=== PATIENT | female | born 1950 | race Caucasian/White ===

== ENCOUNTER 2016-10-17 04:30 | Emergency (ER) | payer MEDICARE ==
[2016-10-17] MEDS ORDERED: ACETAMINOPHEN 325 MG TAB PO ONE (04:54)
[2016-10-17] MEDS ORDERED: diazePAM 2 MG TAB PO ONE (04:54)
[2016-10-17] MEDS ORDERED: ACETAMINOPHEN 325 MG TAB ONE (04:56)
[2016-10-17 06:09] VITALS: O2SAT 94
--- NOTE | 2016-10-17 06:10 | ED.PDOC ---
History of Present Illness - General Chief Complaint: Headache Stated Complaint: headache, high BP Time Seen by Provider: 10/17/16 04:30 Source: patient Exam Limitations: no limitations - History of Present Illness Initial Comments: the patient is a 66-year-old female presenting to the emergency room secondary to waking up with a headache. Headache starts at the posterior base of her skull and wraps around the crown of her skull. This is one of the more severe headaches that she has had. Her systolic blood pressures went from the 160s up to around 220. She took a clonidine and then showed appear to the ER within 20 minutes. No neurological deficits. No syncope or near-syncope. No vision changes. No nausea or vomiting. Timing/Duration: 1 hour Severity: moderate Improving Factors: medication Worsening Factors: nothing Associated Symptoms: headaches Allergies/Adverse Reactions: Allergies Sulfa Antibiotics Adverse Reaction (Verified 10/17/16 04:36) Home Medications: Ambulatory Orders Nebivolol HCl [Bystolic] 10 mg PO QPM #30 tab 02/23/16 Abatacept [Orencia] 250 mg IV MONTHLY 10/17/16 Leflunomide [Arava] 10 mg PO DAILY 10/17/16 Levothyroxine Sodium [Synthroid] 75 mcg PO DAILY 10/17/16 Pravastatin Sodium 40 mg PO DAILY 10/17/16 Review of Systems - Review of Systems Constitutional: States: no symptoms reported EENTM: States: no symptoms reported Respiratory: States: no symptoms reported Cardiology: States: no symptoms reported Gastrointestinal/Abdominal: States: no symptoms reported Genitourinary: States: no symptoms reported Musculoskeletal: States: neck pain Skin: States: no symptoms reported Neurological: States: headache Endocrine: States: no symptoms reported Hematologic/Lymphatic: States: no symptoms reported All other Systems: No Change from Baseline Past Medical History (General) - Patient Medical History Hx Seizures: No Hx Stroke: No Hx Dementia: No Hx Asthma: No Hx of COPD: No Hx Cardiac Disorders: No Hx Congestive Heart Failure: No Hx Pacemaker: No Hx Hypertension: Yes Hx Thyroid Disease: Yes Hx Diabetes: No Hx Gastroesophageal Reflux: No Hx Renal Disease: No Hx Cancer: No Hx of HIV: No Hx Hepatitis C: No Hx MRSA: No Surgical History: Hysterectomy - Vaccination History Hx Tetanus, Diphtheria Vaccination: Yes Hx Influenza Vaccination: No Hx Pneumococcal Vaccination: No Immunizations Up to Date: Yes - Social History Hx Tobacco Use: No Hx Chewing Tobacco Use: No Hx Alcohol Use: No Hx Substance Use: No Hx Substance Use Treatment: No Hx Depression: No Feels Threatened In Home Enviroment: No Feels Threatened In a Relationship: No Hx Physical Abuse: No Hx Emotional Abuse: No Hx Suspected Abuse: No Family Medical History - Family History Mother Family History: Unknown Living Status: Unknown Physical Exam - Physical Exam General Appearance: Alert, Anxious, No apparent distress Eye Exam: bilateral normal Ears, Nose, Throat: hearing grossly normal, normal ENT inspection, normal pharynx Neck: full range of motion, supple, other - mild discomfort to palpation surrounding the C1, C2 and occipital area. Mild muscle spasm noted. Respiratory: chest non-tender, lungs clear, normal breath sounds, no respiratory distress, no accessory muscle use Cardiovascular/Chest: normal peripheral pulses, regular rate, rhythm, no edema Peripheral Pulses: radial,right: 2+, radial,left: 2+ Extremity: normal range of motion, non-tender, normal inspection, no pedal edema , normal capillary refill Neurologic: artist agent II-XII nml as tested, no motor/sensory deficits, alert, oriented x 3 - the patient is very anxious Skin Exam: normal color Comments: Vital Signs - 24 hr 10/17/16 10/17/16 10/17/16 04:34 04:51 05:50 Temperature 97.4 F L 98 F Pulse Rate 64 Pulse Rate [ 83 64 monitor] Respiratory 16 18 Rate Blood Pressure 218/116 177/94 143/76 [Left Arm] O2 Sat by Pulse 97 94 L Oximetry Progress - Progress Progress: 10/17/16 06:12 the patient is a 66-year-old female presenting to the emergency room secondary to headache and hypertension. Blood pressures have returned to normal range and the headache has improved after the one small dose of clonidine taken at home and the dose of Tylenol taken here. It is possible that anxiety played a role along with pain in driving up the blood pressure at home. It is also possible that the blood pressure may have caused a headache. She should follow-up with her primary care doctor later this week. ER warnings were given for any acute worsening. Heat pad and ibuprofen may also be used as necessary to help relieve tension headaches. She should increase her fluid intake for the next few days. ER warnings were given. Departure - Departure Clinical Impression: Tension headache Hypertension Qualifiers: Hypertension type: essential hypertension Qualified Code(s): I10 - Essential ( primary) hypertension Disposition: Discharge to Home or Self Care Condition: Fair Departure Forms: ED Discharge - Pt. Copy, Patient Portal Self Enrollment Instructions: Hypertension (Alternative Therapy), Tension Headache Diet: low salt diet Activity: increase activity as tolerated Referrals: Juan Coates MD [Primary Care Provider] - 1-5 Days Home Medications: Ambulatory Orders Nebivolol HCl [Bystolic] 10 mg PO QPM #30 tab 02/23/16 Abatacept [Orencia] 250 mg IV MONTHLY 10/17/16 Leflunomide [Arava] 10 mg PO DAILY 10/17/16 Levothyroxine Sodium [Synthroid] 75 mcg PO DAILY 10/17/16 Pravastatin Sodium 40 mg PO DAILY 10/17/16 Additional Instructions: the patient is a 66-year-old female presenting to the emergency room secondary to headache and hypertension. Blood pressures have returned to normal range and the headache has improved after the one small dose of clonidine taken at home and the dose of Tylenol taken here. It is possible that anxiety played a role along with pain in driving up the blood pressure at home. It is also possible that the blood pressure may have caused a headache. She should follow-up with her primary care doctor later this week. ER warnings were given for any acute worsening. Heat pad and ibuprofen may also be used as necessary to help relieve tension headaches. She should increase her fluid intake for the next few days. ER warnings were given.
[2016-10-17 06:51] VITALS: BP 134/76; TEMP 98
== END 2016-10-17 06:51 | disposition home or self-care (01) ==
LOC: ER 04:30
DX: G44.209 Tension-type headache, unspecified, not intractable (principal); I10 Essential (primary) hypertension; E07.9 Disorder of thyroid, unspecified; Z79.899 Other long term (current) drug therapy; Z88.2 Allergy status to sulfonamides

== ENCOUNTER → 2017-04-10 | Outpatient (CLI) | payer MEDICARE | END | disposition home or self-care (01) | LOC: GMAJ 16:30 | PROVIDERS: ATTEND Family Medicine | DX: D64.9 Anemia, unspecified (principal); M79.609 Pain in unspecified limb; E53.8 Deficiency of other specified B group vitamins ==

== ENCOUNTER → 2017-08-07 | Outpatient (CLI) | payer MEDICARE | LOC: GMAJ 10:45 | PROVIDERS: ATTEND Family Medicine | DX: E03.9 Hypothyroidism, unspecified (principal) ==

== ENCOUNTER → 2017-11-19 | Outpatient (CLI) | payer MEDICARE | LOC: GMAJ 10:36 | PROVIDERS: ATTEND Family Medicine | DX: E03.9 Hypothyroidism, unspecified (principal) ==

== ENCOUNTER → 2018-05-23 | Outpatient (CLI) | payer MEDICARE | LOC: GMAJ 14:58 | PROVIDERS: ATTEND Family Medicine | DX: D53.1 Other megaloblastic anemias, not elsewhere classified (principal) ==

== ENCOUNTER → 2019-09-11 | Outpatient (CLI) | payer MEDICARE ==
--- NOTE | 2019-09-11 10:19 | RAD ---
EXAM DESCRIPTION: Pelvis CLINICAL HISTORY: 69 years Female, PAIN IN RIGHT HIP COMPARISON: None. FINDINGS: Single AP view the pelvis shows no displaced pelvic fracture. Mild degenerative changes in both hips. Transitional anatomy at the lumbosacral junction with sacralization of the L5 segment and left-sided pseudoarthrosis formation. Degenerative changes in the pubic symphysis. The soft tissues are unremarkable. 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 Electronically signed by: Rakesh Mckeon MD 09/11/2019 10:11 AM CDT
--- NOTE | 2019-09-11 10:20 | RAD ---
EXAM DESCRIPTION: Knee,Right Complete CLINICAL HISTORY: 69 years Female, PAIN IN RIGHT KNEE COMPARISON: None. FINDINGS: Four views of the right knee show no acute fracture or malalignment. Moderate tricompartmental degenerative changes including joint space narrowing and osteophyte formation, worse medially. No joint effusion. No radiopaque foreign body or soft tissue gas. 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 Electronically signed by: Rakesh Mkceon MD 09/11/2019 10:12 AM CDT
== END ==
LOC: RAD 09:20
PROVIDERS: ATTEND Orthopaedic Surgery
DX: M17.11 Unilateral primary osteoarthritis, right knee (principal); M16.0 Bilateral primary osteoarthritis of hip

== ENCOUNTER → 2020-05-12 | Outpatient (CLI) | payer MEDICARE | LOC: GMAJ 17:39 | PROVIDERS: ATTEND Family Medicine | DX: E03.8 Other specified hypothyroidism (principal) ==